=== PATIENT | female | born 1995 | race Asian ===

== ENCOUNTER 2019-04-22 17:26 | Emergency (ER) | payer MEDICAID ==
[~2019-04-22] VITALS: Ht 149.9 cm; Wt 80.0 kg
[2019-04-22] MEDS ORDERED: ACET-2247 PO (17:33)
[2019-04-22 19:29] VITALS: BP 115/69
== END 2019-04-22 19:33 | disposition home or self-care (01) ==
LOC: EMS 17:27
DX: J40 Bronchitis, not specified as acute or chronic (principal); R42 Dizziness and giddiness; F17.210 Nicotine dependence, cigarettes, uncomplicated

== ENCOUNTER 2019-11-19 18:43 | Inpatient (IN) | payer MEDICAID ==
[~2019-11-19] VITALS: Ht 149.9 cm; Wt 87.1 kg
[~2019-11-19 18:43] MED LIST: ACET-2247 PO
[2019-11-19 20:22] LABS: EOSINOPHILS % (AUTO) 4.8 % (1.0-6.0); HEMATOCRIT 40.2 % (36-46); HEMOGLOBIN 13.2 g/dL (12.0-16.0); LYMPHOCYTES # (AUTO) 2.7 K/uL (1.0-4.8); LYMPHOCYTES % (AUTO) 29.5 % (22.0-44.0); MEAN CORPUSCULAR HEMOGLOBIN 26.7 pg (26.0-34.0); MEAN CORPUSCULAR HGB CONC 32.9 G/dL (31.0-37.0); MEAN CORPUSCULAR VOLUME 81 fL (80-100); MONOCYTES # (AUTO) 0.7 K/uL (0.1-1.0); MONOCYTES % (AUTO) 7.4 % (2.0-9.0); NEUTROPHILS # (AUTO) 5.2 K/uL (1.8-7.7); NEUTROPHILS % (AUTO) 57.3 % (40.0-70.0); PLATELET COUNT (AUTO) 280 K/uL (150-450); RED BLOOD CELL COUNT(AUTO) 4.95 MIL/uL (4.00-5.20); RED CELL DISTRIBUTION WIDTH 14.3 % (11.5-14.5)
[2019-11-19 20:53] LABS: ALANINE AMINOTRANSFERASE 34 U/L (12-78); ALBUMIN 3.2 g/dL (3.4-5.0); ALKALINE PHOSPHATASE 46 U/L (46-116); ANION GAP 5 mmol/L (8-16); ASPARTATE AMINOTRANSFERASE 28 U/L (15-37); BILIRUBIN,TOTAL 0.4 mg/dL (0.1-1.0); CALCIUM, TOTAL 8.3 mg/dL (8.8-10.5); CARBON DIOXIDE 30 mmol/L (22-29); CHLORIDE 107 mmol/L (98-107); CREATININE 0.92 mg/dL (0.60-1.30); GLOMERULAR FILTR. RATE CALC > 60 mL/min (>60); GLUCOSE,RANDOM 103 mg/dL (70-110); HCG,QUANTITATIVE < 1 mIU/mL (0-6); SODIUM SERUM 142 mmol/L (136-145); TOTAL PROTEIN, SERUM 6.2 g/dL (6.4-8.2); UREA NITROGEN, BLOOD 10 mg/dL (7-18)
[2019-11-19 21:04] LABS: POTASSIUM 2.9 mmol/L (3.5-5.1)
[2019-11-19 21:59] LABS: AMPHET/METH SCREEN,URINE NEGATIVE (NEGATIVE); BARBITURATE SCREEN, URINE NEGATIVE (NEGATIVE); BENZODIAZEPINES SCREEN,URINE NEGATIVE (NEGATIVE); CANNABINOID SCREEN,URINE POSITIVE (NEGATIVE); COCAINE SCREEN,URINE NEGATIVE (NEGATIVE); METHADONE SCREEN, URINE NEGATIVE (NEGATIVE); OPIATE SCREEN,URINE NEGATIVE (NEGATIVE)
[2019-11-19 22:00] LABS: PHENCYCLIDINE SCREEN,URINE NEGATIVE (NEGATIVE)
[2019-11-19] MEDS ORDERED: POTASSIUM CHLORIDE 10% 40 MEQ/30 ML LIQUID UDCUP PO ONE ×2 (22:15→22:45)
[2019-11-20] MEDS ORDERED: HALOPERIDOL 5 MG TABLET PO PRN
[2019-11-20] MEDS ORDERED: LORazepam 2 MG TABLET PO PRN
[2019-11-20 00:32] LABS: APPEARANCE,URINE CLEAR (CLEAR); BILIRUBIN,URINE NEGATIVE (NEGATIVE); GLUCOSE, URINE (UA) NEGATIVE (NEGATIVE); KETONES,URINE NEGATIVE (NEGATIVE); LEUKOCYTE ESTERASE ,URINE NEGATIVE (NEGATIVE); NITRATE,URINE NEGATIVE (NEGATIVE); OCCULT BLOOD,URINE NEGATIVE (NEGATIVE); PH,URINE 7.5 (5.0-8.0); PROTEIN,URINE NEGATIVE (NEGATIVE); UROBILINOGEN,URINE 0.2 mg/dL (<=1.0)
[2019-11-20] MEDS: ZOLPIDEM TARTRATE 10 MG TABLET PO PRN ×2 (02:49→22:05)
[2019-11-20 03:06] VITALS: BP 106/69
[2019-11-20 03:09] VITALS: BP 106/69
[2019-11-20 08:10] VITALS: BP 106/66
[2019-11-20] MEDS ORDERED: ACETAMINOPHEN 325 MG TABLET PO PRN (08:30)
[2019-11-20] MEDS ORDERED: ALBUTEROL SULFATE HFA 90 MCG/PUFF 8 GM INHALER IH PRN (08:30)
[2019-11-20] MEDS ORDERED: DOCUSATE SODIUM 100 MG CAPSULE PO PRN (08:30)
[2019-11-20] MEDS ORDERED: MAG HYDROX/AL HYDROX/SIMETH ES 30 ML SUSPENSION UDCUP PO PRN (08:30)
[2019-11-20] MEDS ORDERED: PETROLATUM,WHITE 28 GM JELLY TP PRN (08:30)
[2019-11-20] MEDS ORDERED: MAGNESIUM HYDROXIDE SUSPENSION 30 ML UDCUP PO PRN (08:30)
[2019-11-20] MEDS ORDERED: LOPERAMIDE HCL 2 MG CAPSULE PO PRN (08:30)
[2019-11-20] MEDS ORDERED: NICOTINE 14 MG/24 HOUR PATCH TD PRN (08:30)
[2019-11-20] MEDS ORDERED: CloNIDine HCL 0.1 MG TABLET PO PRN (08:30)
[2019-11-20] MEDS ORDERED: IBUPROFEN 400 MG TABLET PO PRN (08:30)
[2019-11-20] MEDS ORDERED: ONDANSETRON HCL 4 MG TABLET PO PRN (08:30)
[2019-11-20] MEDS ORDERED: GuaiFENesin/D-METHORPHAN [SUGAR-FREE] 200-20MG/10 ML SYRUP UDCUP PO PRN (08:30)
[2019-11-20 16:08] VITALS: BP 114/69
[2019-11-20] MEDS: LURASIDONE HCL 20 MG TABLET PO SCH (16:58)
[2019-11-21 08:17] LABS: CHOL/HDL RATIO 3.4 (3.9-5.7); POTASSIUM 3.7 mmol/L (3.5-5.1)
[2019-11-21 08:45] VITALS: BP 110/62
[2019-11-21 16:45] VITALS: BP 100/64
[2019-11-21] MEDS: ZOLPIDEM TARTRATE 10 MG TABLET PO PRN (21:12)
[2019-11-21] MEDS: LURASIDONE HCL 20 MG TABLET PO SCH (21:12)
[2019-11-22 06:50] VITALS: BP 107/75
[2019-11-22 08:26] VITALS: BP 108/71
[2019-11-22 16:08] VITALS: BP 109/67
[2019-11-22] MEDS: LURASIDONE HCL 20 MG TABLET PO SCH (16:42)
[2019-11-22] MEDS: ZOLPIDEM TARTRATE 10 MG TABLET PO PRN (20:29)
[2019-11-23 03:46] VITALS: BP 104/75
[2019-11-23 08:21] VITALS: BP 94/63
[2019-11-23 16:07] VITALS: BP 108/74
[2019-11-23] MEDS: LURASIDONE HCL 40 MG TABLET PO SCH (16:35)
[2019-11-24] VITALS: BP 96/66
[2019-11-24 01:40] VITALS: BP 101/67
[2019-11-24] MEDS: ZOLPIDEM TARTRATE 10 MG TABLET PO PRN (01:43)
[2019-11-24 06:40] VITALS: BP 103/65
[2019-11-24 09:35] VITALS: BP 121/72
[2019-11-24] MEDS ORDERED: LURA40TA2 PO (12:16)
[2019-11-24] MEDS: LURASIDONE HCL 40 MG TABLET PO SCH (16:30)
== END 2019-11-24 18:54 | disposition home or self-care (01) | DRG 750 ==
LOC: EMS 18:48 → B2S 23:30
DX: F20.0 Paranoid schizophrenia (principal); E87.6 Hypokalemia; F10.10 Alcohol abuse, uncomplicated; F12.10 Cannabis abuse, uncomplicated; J30.9 Allergic rhinitis, unspecified
CPT/HCPCS: 84132; G0480

== ENCOUNTER 2020-10-22 14:16 | Emergency (ER) | payer MEDICAID ==
[~2020-10-22] VITALS: Ht 154.9 cm; Wt 90.9 kg
[~2020-10-22 14:16] MED LIST changes: -ACET-2247 PO; +LURA40TA2 PO
[2020-10-22 16:20] VITALS: BP 107/61
== END 2020-10-22 16:42 | disposition home or self-care (01) ==
LOC: EMS 14:21
DX: Z32.02 Encounter for pregnancy test, result negative (principal); F17.210 Nicotine dependence, cigarettes, uncomplicated
CPT/HCPCS: 99282; Z7502

== ENCOUNTER 2021-02-20 21:17 | Emergency (ER) | payer MEDICAID ==
[~2021-02-20] VITALS: Ht 154.9 cm; Wt 95.9 kg
[2021-02-20 21:38] VITALS: BP 111/54
== END 2021-02-21 00:24 | disposition left against medical advice (07) ==
LOC: EMS 21:21
DX: S00.85XA Superficial foreign body of other part of head, initial encounter (principal); F17.210 Nicotine dependence, cigarettes, uncomplicated; W45.8XXA Other foreign body or object entering through skin, initial encounter; Y93.89 Activity, other specified; Y92.89 Other specified places as the place of occurrence of the external cause; Y99.8 Other external cause status
CPT/HCPCS: 99281; Z7502

== ENCOUNTER 2021-08-16 10:20 | Emergency (ER) | payer MEDICAID ==
[~2021-08-16] VITALS: Ht 154.9 cm; Wt 90.9 kg
[2021-08-16 12:29] LABS: COVID AG,FIA SOURCE NASOPHARYNGEAL
[2021-08-16 13:20] VITALS: BP 110/76
[2021-08-16] MEDS ORDERED: BENZ-70 PO (13:28)
== END 2021-08-16 14:16 | disposition home or self-care (01) ==
LOC: EMS 10:22
DX: U07.1 COVID-19 (principal); Z79.899 Other long term (current) drug therapy
CPT/HCPCS: 99283

== ENCOUNTER 2022-06-10 16:43 | Emergency (ER) | payer BC, MEDICAID ==
[~2022-06-10] VITALS: Ht 154.9 cm; Wt 90.9 kg
[~2022-06-10 16:43] MED LIST changes: +BENZ-70 PO
[2022-06-10 16:46] VITALS: BP 115/71
== END 2022-06-10 19:30 | disposition left against medical advice (07) ==
LOC: EMS 16:46
DX: J02.9 Acute pharyngitis, unspecified (principal); R50.9 Fever, unspecified; Z53.21 Procedure and treatment not carried out due to patient leaving prior to being seen by health care provider